=== PATIENT | female | born 1950 | race Caucasian/White ===

== ENCOUNTER 2018-03-21 20:05 | Inpatient (IN) | payer MEDICARE, OTHER ==
[~2018-03-21] VITALS: Ht 154.9 cm; Wt 101.2 kg
[2018-03-21 20:07] VITALS: BP 178/103
--- NOTE | 2018-03-21 20:29 | NUR ---
PT WAS UNABLE TO GIVE THE NAME OF HER ALLERGIES OR A LIST OF HER MEDICATIONS. SHE DID GIVE THIS NURSE A CARD FROM [facility] STATING SHE USES JUDITH VELÁZQUEZ HER PRIMARY PHYSICIAN. CALLED THE HOSPITAL AT THIS TIME THE OFFICES ARE CLOSED. SPOKE WITH GONZÁLEZ GARCIA IN THE ED AND SHE WAS ABLE TO GIVE ME PATIENTS ALLERGIES OF WHEN SHE HAD A BILATERAL BLEPHAROPLASTY (EYELIDS RAISED) IN 2016. SHE WILL CALL US BACK IF SHE IS ABLE TO RETRIEVE A MED LIST OR A NEXT OF KIN.
[2018-03-21 20:31] LABS: ABSOLUTE LYMPHOCYTES 1.1 thou/uL (0.8-5.3); ABSOLUTE MONOCYTES 0.6 thou/uL (0.0-1.2); ABSOLUTE NEUTROPHILS 7.9 thou/uL (1.6-8.1); BASOPHILS 0.4 %; EOSINOPHILS 0.4 %; HEMATOCRIT 37.5 % (37.0-47.0); HEMOGLOBIN 12.6 gm/dL (12.0-15.0); MCH 30.9 pg (26.0-34.0); MCHC 33.6 g/dL (28.0-37.0); MCV 91.9 fL (80.0-100.0); MONOCYTES 6.1 %; MPV 7.2 fl. (7.2-11.1); NUCLEATED RBCS 0 /100WBC; PLATELET COUNT* 268 thou/uL (150-400); POLYS 82.1 %; RBC 4.08 mil/uL (4.20-5.00); RDW-CV 14.3 % (10.5-14.5); WBC 9.6 thou/uL (4.0-11.0)
[2018-03-21 20:54] LABS: ANION GAP 2 mmol/L (7-16); BUN 12 mg/dL (7-18); CALCIUM 8.8 mg/dL (8.5-10.1); CHLORIDE 95 mmol/L (98-107); CO2 38 mmol/L (21-32); CREATININE 0.7 mg/dL (0.6-1.3); GLUCOSE 123 mg/dL (70-99); POTASSIUM 3.5 mmol/L (3.5-5.1); SODIUM 135 mmol/L (136-145)
[2018-03-21 21:01] LABS: ALBUMIN 2.9 g/dL (3.4-5.0); ALKALINE PHOSPHATASE 84 U/L (46-116); SGOT 14 U/L (15-37); SGPT 19 U/L (30-65); TOTAL BILIRUBIN 0.4 mg/dL (<0.1-1.0); TOTAL PROTEIN 7.3 g/dL (6.4-8.2); TROPONIN-I LEVEL <0.06 ng/mL (<0.06)
--- NOTE | 2018-03-21 21:15 | NUR ---
DAUGHTER IS KERMIT AT [phone]
[2018-03-21 21:46] LABS: URINE BLOOD NEGATIVE (Negative); URINE CLARITY CLEAR; URINE COLOR YELLOW; URINE GLUCOSE-RANDOM NEGATIVE (Negative); URINE KETONES 1+ (Negative); URINE LEUKOCYTES-REFLEX NEGATIVE (Negative); URINE NITRITE-REFLEX NEGATIVE (Negative); URINE PROTEIN 1+ (Negative); URINE SPECIFIC GRAVITY 1.015 (1.005-1.030)
[2018-03-21 21:47] LABS: ICTOTEST (BILI CONFIRMATORY) Negative (Negative); URINE BILIRUBIN 1+ (Negative)
[2018-03-21 21:52] LABS: BE 12.5 mmol/L (-2 to +3); PO2 91.1 mmHg (75.0-100.0); pH 7.317 (7.340-7.450)
[2018-03-21 21:56] LABS: HCO3 42.6 mmol/L (22.0-26.0); PCO2 85.2 mmHg (35.0-45.0)
[2018-03-21 22:50] VITALS: BP 106/55
[2018-03-21 23:50] VITALS: BP 135/98
[2018-03-22] VITALS (15 sets, daily range): BP systolic 104–149; BP diastolic 57–92
[2018-03-22 01:35] LABS: BE 8.5 mmol/L (-2 to +3); HCO3 38.3 mmol/L (22.0-26.0)
[2018-03-22 01:44] LABS: PCO2 83.4 mmHg (35.0-45.0); PO2 56.8 mmHg (75.0-100.0)
--- NOTE | 2018-03-22 02:55 | NUR ---
PT ADMITTED TO ICU BED 6 AT 0010, SEE ASSESSMENTS. PT STATED THAT SHE WAS VISITING FRIENDS IN [place] AND WAS TRAVELING BACK HOME TO [place]. SHE WEARS CONTINUOUS OXYGEN FOR COPD AND HER HOME O2 TANK HAD RUN EMPTY, SHE DOES NOT KNOW THE DURATION OF TIME SHE WAS WITHOUT HER O2. SHE STATED SHE BELIEVES SHE GOT LOST, WAS SOA AND CALLED 911. PT WAS PLACED ON BIPAP IN ER. 0130 CRITICAL ABG RESULTS WERE CALLED TO DR GRANT, PULMONOLOGY CONSULTED PER HIS ORDER. SPOKE WITH DR HAMLIN, ORDER RECEIVED TO MAINTAIN BIPAP AT CURRENT SETTINGS OF 16/6, RR 14, FIO2 50%. ASSISTED PT TO BSC, O2 SAT DROPPED RAPIDLY TO HIGH 70'S AND SUBSEQUENTLY HAJI CATHETER PLACED. VSS. PTS PURSE REMAINS AT BEDSIDE, PT DECLINED TO HAVE IT OR ANY OF ITS CONTENTS LOCKED IN SECURITY AT THIS TIME. PT ORIENTED TO ROOM AND CALL LIGHT WHICH IS WITHIN REACH.
--- NOTE | 2018-03-22 03:47 | NUR ---
SPOKE TO [facility] DISPATCH TO DETERMINE LOCATION OF PTS VEHICLE. PER DISPATCH, PT WAS PICKED UP BY [facility] AT A [facility] STATION ON [address] NEAR [place]. VIA INTERNET SEARCH LOCATED A [place] AT [address] IN [place], [place], .
[2018-03-22 04:33] LABS: ABSOLUTE EOSINOPHILS 0.1 thou/uL (0.0-0.7); ABSOLUTE LYMPHOCYTES 1.1 thou/uL (0.8-5.3); ABSOLUTE MONOCYTES 0.7 thou/uL (0.0-1.2); ABSOLUTE NEUTROPHILS 6.2 thou/uL (1.6-8.1); BASOPHILS 0.4 %; EOSINOPHILS 0.8 %; HEMATOCRIT 34.4 % (37.0-47.0); HEMOGLOBIN 11.2 gm/dL (12.0-15.0); LYMPHOCYTES 13.1 %; MCH 30.4 pg (26.0-34.0); MCHC 32.6 g/dL (28.0-37.0); MCV 93.1 fL (80.0-100.0); MONOCYTES 8.3 %; MPV 7.4 fl. (7.2-11.1); NUCLEATED RBCS 0 /100WBC; PLATELET COUNT* 249 thou/uL (150-400); POLYS 77.4 %; RBC 3.69 mil/uL (4.20-5.00)
[2018-03-22 04:43] LABS: ANION GAP < 0 mmol/L (7-16); BUN 11 mg/dL (7-18); CALCIUM 8.4 mg/dL (8.5-10.1); CHLORIDE 99 mmol/L (98-107); CO2 38 mmol/L (21-32); CREATININE 0.7 mg/dL (0.6-1.3); GLUCOSE 127 mg/dL (70-99); POTASSIUM 3.6 mmol/L (3.5-5.1); SODIUM 135 mmol/L (136-145)
[2018-03-22 08:51] LABS: BE 8.3 mmol/L (-2 to +3); HCO3 38.6 mmol/L (22.0-26.0); PO2 88.5 mmHg (75.0-100.0)
[2018-03-22 08:52] LABS: PCO2 89.8 mmHg (35.0-45.0); pH 7.251 (7.340-7.450)
--- NOTE | 2018-03-22 08:56 | NUR ---
RECEIVED REPORT FROM JOSE MARSH. ASSESSMENT CHARTED. AFEBRILE. PT IS ALERT BUT SEEMS CONFUSED. VITAL SIGNS STABLE. ABG'S DRAWN WHILE PT ON 6L NC. MEDS GIVEN. WILL CONTINUE TO MONITOR.
[2018-03-22 12:18] LABS: BE 6.7 mmol/L (-2 to +3); HCO3 34.9 mmol/L (22.0-26.0); PO2 69.1 mmHg (75.0-100.0); pH 7.318 (7.340-7.450)
[2018-03-22 12:19] LABS: PCO2 69.6 mmHg (35.0-45.0)
--- NOTE | 2018-03-22 15:15 | EKG ---
[place] [address] ELECTROCARDIOGRAM REPORT Name: SAUMYAYairJUDE R Room: [address] ADM IN .R.#: [id number] Admission: 03/21/18 Attend Phys: Bishnu Bajwa, Discharge: Date of : 52 Report #: [id number] THIS REPORT FOR: //name// [facility] ED Test Date: 2018-03-21 Test Time: 20:14:42 Pat Name: JUDE UNGER Department: Room: [address] Gender: F Black Top Paver Operator: BETTY : 1950 Requested By: Jeannie Márquez Order Number: [id number] Shanna MD: Jesús Hilton Measurements Intervals Brilliant Rate: 108 P: 54 MD: 170 QRS: 17 QRSD: 85 T: 93 QT: 316 QTc: 424 Interpretive Statements Sinus tachycardia Atrial premature complex Borderline repolarization abnormality No previous ECG available for comparison Electronically Signed On 03-22-2018 15:15:21 CDT by Jesús Hilton [email or web address] <ELECTRONICALLY SIGNED> By: Jesús Hilton MD, [facility] 03/22/18 1515 13 13 Jesús Hilton MD, FACC /EPI
[2018-03-23] VITALS (12 sets, daily range): BP systolic 107–142; BP diastolic 53–89
[2018-03-23 03:47] LABS: BE 5.7 mmol/L (-2 to +3); HCO3 34.5 mmol/L (22.0-26.0); PO2 78.1 mmHg (75.0-100.0)
[2018-03-23 03:48] LABS: PCO2 72.4 mmHg (35.0-45.0); pH 7.296 (7.340-7.450)
--- NOTE | 2018-03-23 06:43 | NUR ---
CURRENTLY REMAINS ON BIPAP. CONTINUAL EDUCATION PROVIDED ABOUT NECESSITY OF BIPAP AT THIS TIME, VERBALIZED UNDERSTANDING. PT REFUSED BIPAP FROM APPROXIMATELY [phone]. AM ABGS DONE AT 0300 ON 3L O2 PER NC, CRITICAL RESULTS WERE CALLED TO DR HAMLIN, NO NEW ORDERS. PT EDUCATED AT THAT TIME ABOUT ELEVATED CO2 AND SHE AGREED TO WEAR BIPAP FOR REMAINDER OF THE NIGHT BASED ON HER TOLERANCE. PT TURNS SELF IN BED FROM SIDE TO SIDE, ADEQUATELY RELIEVING PRESSURE. CALL LIGHT WITHIN REACH.
--- NOTE | 2018-03-23 08:08 | CON ---
[address] [address] CONSULTATION Name: JUDE UNGER Room: [address] ADM IN M.R.#: [id number] Admission: 03/21/18 Attend Phys: Bishnu Bajwa, Discharge: Date of : 52 Report #: [id number] THIS REPORT FOR: //name// CC: LUIS F physician/PCP Bishnu Bajwa REFERRING PHYSICIAN: Bishnu Bajwa MD CHIEF COMPLAINT: Respiratory failure, altered mental status. HISTORY OF PRESENT ILLNESS: The patient is a 68-year-old female who gives a history [place] around 7:00 or so and was headed to her home town in [place]. Unfortunately, she uses oxygen therapy and states that she ran out of oxygen. She became confused and directed herself to [facility]. I cannot get a real good idea as to actually how she arrived here. Reviewing the ER records, she did present to the Emergency Room at around 8:00 p.m. or so. The patient had numerous complaints in the Emergency Room complaining of headaches, leg swelling, dizziness, lightheadedness, neck pain and shortness of breath. The patient is confused in the sense that she is unable to tell me exactly what city and hospital she is in. She is oriented to person and time. Today, she is experiencing some nausea. She has not had any vomiting. The patient gives a vague history stating that she is a smoker, unable to provide an accurate description of her smoking history. I do get an idea that she is less than a half pack of cigarettes per day now, but had been as high as 1-1/2 to 2 packs per day. Unclear as to when she actually started cutting back on her cigarette consumption. She has denied any cough or phlegm production. She has not had any fever or chills. She lives by herself in [place]. This morning, she is not actually complaining of any specific pain. She has undergone evaluation in Emergency Room with a chest x-ray, CTA of the chest and a CT of the head. PAST MEDICAL HISTORY: Significant for COPD, hernia repair, abdominal hernia repair and history of "blood clots" unsure as to where these were if they were DVT or pulmonary emboli. FAMILY HISTORY: Not pertinent. She is unable to provide that information. SOCIAL HISTORY: She is a smoker. She lives by herself in [place]. She states [place] [address] CONSULTATION Name: JUDE UNGER Room: [address] IN [facility]#: [id number] Admission: 03/21/18 Attend Phys: Bishnu Bajwa, Discharge: Date of : 52 Report #: [id number] ALLERGIES: SHE IS ALLERGIC TO DOXYCYCLINE, IBUPROFEN, LEVOTHYROXINE, NAPROSYN, PENICILLIN, AND SULFA DRUGS. REVIEW OF SYSTEMS: System review is negative other than what is outlined above. CURRENT MEDICATIONS: Levaquin, aztreonam, lorazepam, DuoNeb aerosol treatments. PHYSICAL EXAMINATION: VITAL SIGNS: Blood pressure 104/68, respiratory rate 17 nonlabored, pulse rate 84, regular, temperature 98.2 degrees. Today's weight 219 pounds. GENERAL APPEARANCE: She is awake. She is responsive. She is drowsy and does fall asleep easily. HEAD: Atraumatic. EYES: Pupils are round, equal, reactive. Extraocular muscles are intact. Sclerae and conjunctivae are clear. NECK: There is no adenopathy or JVD. EARS: Reveal the auricular structures to be normal. NOSE: Nasal passages are patent without polyps. ORAL CAVITY: Moist. No lesions. Marked crowding of her oropharynx. Uvula not visualized. CHEST: Reveals markedly diminished breath sounds, poor inspiratory effort. CARDIOVASCULAR: Reveals a regular rhythm with a rate of about 82 and it is sinus. ABDOMEN: Obese without organomegaly or tenderness. EXTREMITIES: Negative for edema. No evidence of clubbing or cyanosis. SKIN: Warm and dry without rash. LYMPHATICS: Negative. Pulses are equal bilaterally. NEUROLOGIC: She is awake, alert. She is responsive but falls asleep easily. She is oriented to person as well as time. She is not sure about the place, although this would make sense and she is not familiar with the area. She is able to provide a good cgfube-ed-jejyuk exam. She does not have any tremors with outreached hands. Deep tendon reflexes are adequate bilaterally. No lateralizing signs, strength equal bilaterally. MEDICAL IMAGING STUDIES: CT of the brain was negative. No abnormalities noted. CT of the chest revealed no evidence of pulmonary emboli or dissection. There is a mild left lower lobe infiltrate. LABORATORY DATA: On admission in the Emergency Room, arterial blood gas revealed a pH 7.32, pCO2 of 85, pO2 of 91, bicarbonate of 42 while on 6 liters. At 1:30 a.m. today, her pH 7.28, pCO2 of 83, pO2 of 57, bicarbonate of 38 while on BiPAP 14/6. She is scheduled for another arterial blood gas. She is on a cannula at this time. BiPAP was discontinued because of her nausea. Hemoglobin and hematocrit of 11 and 34 with a white count of 8000. Troponin on [address] [address] CONSULTATION Name: JUDE UNGER Room: [address] IN M.R.#: [id number] Admission: 03/21/18 Attend Phys: Bishnu Bajwa, Discharge: Date of : 52 Report #: [id number] admission less than 0.06. Today, her electrolytes revealed sodium 135, potassium 3.6, chloride 99, CO2 of 38, a BUN of 11, creatinine 0.7. ASSESSMENT: 1. Acute hypoxemic, hypercapnic respiratory failure. 2. Altered mental status secondary to hypercapnia, most likely. 3. Obesity. 4. Presumed sleep apnea. 5. Pulmonary infiltrates. RECOMMENDATION: Continue arterial blood gases. If the patient has nausea, we will provide antiemetics. We will attempt BiPAP in the event that her blood gases are worsening. In the event that she deteriorates, continues to remain nausea, she may require intubation and ventilator support because of her abnormal blood gases in the event that they worsen. In the meantime, we will initiate aspiration precautions, add some steroids, check thyroid function studies. 35-40 minutes were spent in evaluating and complying the critical care consult. <ELECTRONICALLY SIGNED> By: Shazia Parham MD 03/23/18 0808 [id number] Roberts MD /nt
[2018-03-23 13:05] LABS: BE 6.1 mmol/L (-2 to +3); HCO3 31.8 mmol/L (22.0-26.0); PO2 92.6 mmHg (75.0-100.0); pH 7.413 (7.340-7.450)
--- NOTE | 2018-03-23 16:00 | NUR ---
SPOKE WITH PATIENT THIS MORNING. SHE WAS DRIVING FROM [place], BACK HOME TO [place]. SHE NORMALLY WEARS 02 AT 4L CONTINOUSLY, SHE RAN OUT OF HER PORTABLE OXYGEN, CONTINUED TO DRIVE BUT 'FELT LIKE I WAS DRUNK.' PT DROVE HERSELF TO THE E.D., HER MINIVAN IS PARKED IN THE PARKING LOT. PT NORMALLY IS ACTIVE AND INDEP. HER DTR KERMIT DROVE FROM [place] AND IS HERE NOW. PT'S HOME OXYGEN IS FROM [facility]. CALLED ([phone]) AND SPOKE WITH [facility], PT WILL NEED OXYGEN TO GET FROM [place] BACK HOME TO [place] WHEN SHE IS DISCHARGED. RECEIVED CALL BACK FROM LEON THIS AFTERNOON, THEY HAVE SHIPPED BY UPS A PORTABLE CONCENTRATOR (RUNS ON BATTERIES OR HAS A CAR C T TECH) TO THIS HOSPITAL SO PATIENT CAN USE THAT ON THE WAY HOME.
[2018-03-24] VITALS (8 sets, daily range): BP systolic 126–179; BP diastolic 70–103
[2018-03-24 05:05] LABS: ALBUMIN 2.3 g/dL (3.4-5.0); CALCIUM 8.6 mg/dL (8.5-10.1); CREATININE 0.8 mg/dL (0.6-1.3); POTASSIUM 4.2 mmol/L (3.5-5.1); TOTAL BILIRUBIN 0.1 mg/dL (<0.1-1.0); TOTAL PROTEIN 6.4 g/dL (6.4-8.2)
[2018-03-24 05:13] LABS: HEMATOCRIT 34.6 % (37.0-47.0); HEMOGLOBIN 11.5 gm/dL (12.0-15.0); MCH 30.4 pg (26.0-34.0); MCHC 33.2 g/dL (28.0-37.0); MCV 91.5 fL (80.0-100.0); MPV 7.9 fl. (7.2-11.1); NUCLEATED RBCS 0 /100WBC; PLATELET COUNT* 257 thou/uL (150-400); RBC 3.78 mil/uL (4.20-5.00); RDW-CV 14.3 % (10.5-14.5)
[2018-03-24 06:07] LABS: ABSOLUTE LYMPHOCYTES 0.7 thou/uL (0.8-5.3); ABSOLUTE MONOCYTES 0.1 thou/uL (0.0-1.2); ABSOLUTE NEUTROPHILS 13.2 thou/uL (1.6-8.1); PLATELET ESTIMATE ADEQUATE
[2018-03-24 06:08] LABS: ANISOCYTOSIS 1+; POIKILOCYTOSIS 1+
--- NOTE | 2018-03-24 07:46 | NUR ---
PROGRESSING TOWARD GOALS. TOLERATING BIPAP BETTER, HFNC DURING MEALS. O2 SATS HAVE REMAINED >90%. TOLERATING PO INTAKE WELL. PT TURNS SELF INDEPENDENTLY IN BED. CALL LIGHT WITHIN REACH.
--- NOTE | 2018-03-24 09:00 | NUR ---
PATIENT IS AXOX4, ASSESSMENT CHARTED. NO PAIN, NAUSEA, OR SHORTNESS OF AIR. GOALS FOR TODAY ARE TO INCREASE ACTIVITY, PAIN CONTROL, IMOROVE BREATHING AND DECREASE O2 NEEDS. BED IN LOWEST POSITION, CALL LIGHT IN REACH, INSPECTOR EYEGLASS IN PLACE. WILL CONTINUE TO MONITOR.
[2018-03-24 09:44] LABS: BE 6.6 mmol/L (-2 to +3); HCO3 31.8 mmol/L (22.0-26.0); PCO2 48.1 mmHg (35.0-45.0); pH 7.438 (7.340-7.450)
[2018-03-24 09:45] LABS: PO2 57.7 mmHg (75.0-100.0)
--- NOTE | 2018-03-24 10:40 | NUR ---
Nutrition: Pt admitted with respiratory failure. Assessed for high BMI, 41.5. Eating CHO controlled diet well. Pt wants to go home. Off bipap, on 3L O2. Wt: 219#. BG is high 229, albumin 3. RX: no insulin or BG lowering RX noted, on solumedrol. GOAL: better BG control. Hopefully, more physical movement will help. Pt wants to get up and move. Mild nutrition risk. Follow up per protocol.
--- NOTE | 2018-03-24 11:23 | NUR ---
PATIENT IS M/S TELE. GOING TO ROOM 309 BY WHEELCHAIR. ALL BELONGINGS SENT WITH PATIENT. FAMILY PRESENT AT TRANSFER. REPORT GIVEN TO TARAN GARCIA. ALL QUESTIONS ANSWERED.
--- NOTE | 2018-03-24 11:31 | NUR ---
INTERDISICPLINARY ROUNDS: PT UP IN CHAIR, ON 3L O2. TO HAVE PORTABLE CONCENTRATOR DELIVERED SOON. PT TO TRSF TO MS/TELE TODAY
--- NOTE | 2018-03-24 15:03 | NUR ---
PATIENT TO ROOM 309 VIA WHEELCHAIR ABOUT 1130 TODAY. A/O, DENIES PAIN, VSS, ON 3LO2NC, ROSALINDA IVF VIA 20G TO LEFT FA, ROSALINDA IV ABT WITHOUT S/S OF ADR, ROSALINDA LUNCH WITHOUT DIFFICULTY. FAMILY REPORTS PATIENT HAS HAD NO BM IN FIVE DAYS, PATIENT DOESN'T REMEMBER LAST BM. BED ALARMS ON, SIDERAILS UP X 3, CALL LIGHT IN REACH, SCD'S DECLINED. PRIOR ASSESSMENT REVIEWED, AGREE WITH FINDINGS. CONT POC.
[2018-03-24] MEDS ORDERED: LOPRESSOR50 PO (16:50)
[2018-03-24] MEDS ORDERED: LISINOPRIL20 MG PO (16:51)
--- NOTE | 2018-03-24 17:46 | NUR ---
HYPERTENSIVE THIS AFTERNOON, 20 MG LISINOPRIL GIVEN PER ORDERS.
[2018-03-25 04:00] VITALS: BP 146/86
--- NOTE | 2018-03-25 07:30 | NUR ---
PT REQUESTING SOMETHING TO HELP HER SLEEP, STATES SHE DOESNT LIKE "THAT MACHINE" (BIPAP) AND IT MAKES HER FEEL CLAUSTROPHIBIC. NOTIFIED AND ORDERS RECEIVED. PT SLEPT WELL WITH BIPAP ON AFTER TAKING SLEEP AIDE. LORAZEPAM GIVEN AFTER MIDNIGHT AND PT ABLE TO TOLERATE BIPAP WELL. UP WITH SBA TO BR TO VOID. PT CAN BE IMPULSIVE, TAKING OFF O2 AND PULLING ON IV SO BED ALARM ON OVERNIGHT FOR SAFETY. RFA IVF INFUSING PER PUMP, ABX GIVEN ORDERED, SOLUMEDROL. TELE SR. DENIES PAIN. ABLE TO USE CALL LITE AND MAKE NEEDS KNOWN.
[2018-03-25 08:00] VITALS: BP 172/103
[2018-03-25] MEDS ORDERED: METHOTREXATE 22.5 MG PO (08:25)
[2018-03-25] MEDS ORDERED: ALBUTEROL2.5 MG/31 INH (08:26)
[2018-03-25] MEDS ORDERED: CYMBALTA30 MG PO (08:26)
[2018-03-25] MEDS ORDERED: FOLIC ACID1 MG PO (08:27)
[2018-03-25] MEDS ORDERED: OMEPRAZOLE 20 M20 M1 PO (08:29)
[2018-03-25] MEDS ORDERED: SYNTHROID175 MCG PO (08:31)
[2018-03-25] MEDS ORDERED: VENTOLIN HFA 1818 GM INH (08:31)
--- NOTE | 2018-03-25 10:54 | NUR ---
PORTABLE CONCENTRATOR SHIPPED FROM OXYGEN SUPPLIER HAS ARRIVED. TOOK CONCENTRATOR TO PT'S ROOM, SHE SAID SHE HAS HAD ONE IN THE PAST AND UNDERSTANDS HOW IT WORKS BUT WILL READ THRU THE DIRECTIONS THAT CAME WITH IT TO MAKE SURE. PT'S DTR HAS RETURNED HOME BUT PT BELIEVES HER DTR IS RETURNING TO DRIVE HOME WITH HER WHEN SHE IS DISCHARGED.
--- NOTE | 2018-03-25 16:09 | NUR ---
PATIENT A&OX4, FORGETFUL AT TIMES. VERY ANXIOUS. 3L O2 VIA NC, ON BIPAP. IV IN RIGHT FOREARM, INFILTRATED. 2ND IV RIGHT FOREARM, INFILTRATED. SPOKE WITH PHYSICIAN, OKAY WITH PO MEDICATIONS. UP AD LAURA, STAND BY STEADY GIAT. NO C/O PAIN/N/V. HOME OXYGEN TANK PROVIDED SO SHE CAN MAKE IT BACK HOME. NO OTHER CONCERNS AT THIS TIME. APPROPRAITE AND COOPORATIVE WITH CARE.
[2018-03-25 16:59] VITALS: BP 150/96
--- NOTE | 2018-03-25 17:13 | NUR ---
ASSUMED CARE OF PATIENT AT 1600. PATIENT SITTING UP ON SIDE OF BED AWAITING DINNER. NO COMPLAINTS AT THIS TIME. WILL CONTINUE TO MONITOR.
[2018-03-25 20:00] VITALS: BP 140/89
[2018-03-25 23:40] VITALS: BP 167/96
[2018-03-26 04:30] VITALS: BP 180/102
[2018-03-26 04:36] LABS: ALBUMIN 2.5 g/dL (3.4-5.0); ALKALINE PHOSPHATASE 60 U/L (46-116); ANION GAP < 0 mmol/L (7-16); BUN 23 mg/dL (7-18); CALCIUM 8.6 mg/dL (8.5-10.1); CHLORIDE 91 mmol/L (98-107); CO2 40 mmol/L (21-32); CREATININE 0.8 mg/dL (0.6-1.3); GLUCOSE 193 mg/dL (70-99); MAGNESIUM 2.1 mg/dL (1.8-2.4); PHOSPHORUS* 3.8 mg/dL (2.5-4.9); POTASSIUM 4.6 mmol/L (3.5-5.1); SGOT 36 U/L (15-37); SGPT 35 U/L (30-65); SODIUM 130 mmol/L (136-145); TOTAL BILIRUBIN 0.2 mg/dL (<0.1-1.0); TOTAL PROTEIN 5.6 g/dL (6.4-8.2)
[2018-03-26 04:42] LABS: ABSOLUTE LYMPHOCYTES 0.8 thou/uL (0.8-5.3); ABSOLUTE MONOCYTES 0.5 thou/uL (0.0-1.2); ABSOLUTE NEUTROPHILS 11.5 thou/uL (1.6-8.1); BASOPHILS 0.1 %; HEMOGLOBIN 11.3 gm/dL (12.0-15.0); LYMPHOCYTES 6.6 %; MCH 30.3 pg (26.0-34.0); MCHC 33.2 g/dL (28.0-37.0); MCV 91.3 fL (80.0-100.0); MONOCYTES 3.7 %; MPV 7.7 fl. (7.2-11.1); NUCLEATED RBCS 0 /100WBC; PLATELET COUNT* 236 thou/uL (150-400); POLYS 89.6 %; RBC 3.72 mil/uL (4.20-5.00); RDW-CV 14.6 % (10.5-14.5); WBC 12.8 thou/uL (4.0-11.0)
--- NOTE | 2018-03-26 06:11 | NUR ---
PATIENT SLEPT MOST OF THE NIGHT. PATIENT HAD NO COMPLAINTS OF PAIN. PATIENT REMAINS ON OXYGEN AT 3L PER NASAL CANNULA. PATIENT IS POSSIBLY BEING DISCHARGED TODAY OR TOMORROW. WILL CONTINUE TO MONITOR.
[2018-03-26 08:15] VITALS: BP 164/95
[2018-03-26 11:21] VITALS: BP 141/81
--- NOTE | 2018-03-26 15:34 | NUR ---
IRISH followed up with pt. Pt said she plans to have her dtr drive here so that she won't be driving home alone. Pt anticipating to be able to dc Friday or Friday. No needs or concerns expressed at this time.
[2018-03-26 15:57] VITALS: BP 148/78
[2018-03-26 16:34] LABS: BE 10.5 mmol/L (-2 to +3); HCO3 37.4 mmol/L (22.0-26.0); PO2 90.6 mmHg (75.0-100.0); pH 7.413 (7.340-7.450)
[2018-03-26 16:40] LABS: PCO2 59.9 mmHg (35.0-45.0)
--- NOTE | 2018-03-26 18:47 | NUR ---
PATIENT RESTING IN BED. PATIENT HAS BEEN UP FOR MEALS. PATIENT HAS GOOD APPETITE. PATIENT IS ON 3L/NC. PATIENT HAS DENIED ANY TROUBLE BREATHING. PATIENT IS TO BE ON BIPAP AT NIGHT. PATIENT DENIES ANY NEEDS AT THIS TIME. CALL LIGHT WITHIN REACH. WILL CONTINUE TO MONITOR.
[2018-03-26 20:00] VITALS: BP 128/75
[2018-03-27] VITALS (7 sets, daily range): BP systolic 131–165; BP diastolic 76–93
[2018-03-27 05:10] LABS: CALCIUM 8.6 mg/dL (8.5-10.1); CREATININE 0.6 mg/dL (0.6-1.3); POTASSIUM 4.3 mmol/L (3.5-5.1)
--- NOTE | 2018-03-27 05:50 | NUR ---
PATIENT SLEPT MOST OF THE NIGHT. PATIENT HAD NO COMPLAINTS OF PAIN. PATIENT REMAINS ON OXYGEN AT 3L PER NASAL CANNULA. PATIENT IS POSSIBLY GOING HOME FRIDAY. WILL CONTINUE TO MONITOR.
[2018-03-27] MEDS ORDERED: PREDNISONE 10 M10 MG PO (11:04)
--- NOTE | 2018-03-27 20:15 | NUR ---
PATIENT RESTING IN BED. PATIENT DENIES ANY PAIN. PATIENT DENIES ANY TROUBLE BREATHING. PATIENT HAS O2 ON AT 2L/NC. PATIENT IS UP AD LAURA IN ROOM. PATIENT IS TENTATIVELY DISCHARGING TOMORROW, PATIENT'S DAUGHTER IS DRIVING FROM [place] TO TAKE HER HOME. PATIENT DENIES ANY NEEDS AT THIS TIME. CALL LIGHT WITHIN REACH. WILL CONTINUE TO MONITOR.
[2018-03-28] VITALS (7 sets, daily range): BP systolic 116–143; BP diastolic 70–86
--- NOTE | 2018-03-28 06:21 | NUR ---
ASSESSMENT COMPLETE. PT SLEPT THROUGH THE NIGHT. PT IS ON 2L PER NC WITH [place] SATS, BIPAP AT HS TOLERATED FOR AROUND 6 HOURS. PT DENIES PAIN AND N/V. PT IS ON MONITOR. PT HAS NO IV. PT IS UP AD LAURA AND TURNS SELF IN BED. SEE ASSESSMENT AND VITALS FOR OTHER DETAILS. CALL LIGHT WITHIN REACH, WILL CONTINUE PLAN OF CARE
[2018-03-28] MEDS ORDERED: ROBITUSSIN100 MG/53 PO (17:12)
--- NOTE | 2018-03-28 18:43 | NUR ---
PATIENT REMAINED ALERT AND ORIENTED X'S 4. VITAL SIGNS AND SPO2 STABLE. PATIENT WAS SUPPOSED TO BE DISCHARGED YESTERDAY BUT LIVES IN [place] AND HAD NO RIDE. TODAY HOWEVER, HE SODIUM LEVEL HAS DROP SIGNIFICANTLY DROPPED FROM 130 TO 121. DOCTOR PLACED HER ON 1500 ML FLUID RESTRICTION DIET. PATIENT WAS UPSET BUT NURSE EXPLAINED THE REASONS BEHIND DOCTOR KEEPING HER OVERNIGHT. PATIENT STATED SHE IS GREATFUL FOR HAVING SUCH GOOD CARE AND WAS SATISTFIED. NO IV ACCESS. VOIDED WITHOUT ISSUE. RECIEVED BREATHING TREATMENTS. COMPLETED HOURLY ROUNDING. CALL LIGHT WITHIN REACH. WILL CONTINUE TO MONITOR.
[2018-03-29 03:56] LABS: HEMOGLOBIN 12.8 gm/dL (12.0-15.0); MCH 29.7 pg (26.0-34.0); MCHC 33.7 g/dL (28.0-37.0); MCV 88.2 fL (80.0-100.0); MPV 7.6 fl. (7.2-11.1); RBC 4.31 mil/uL (4.20-5.00); RDW-CV 14.4 % (10.5-14.5); WBC 12.9 thou/uL (4.0-11.0)
[2018-03-29 04:16] LABS: ALBUMIN 2.6 g/dL (3.4-5.0); CALCIUM 8.3 mg/dL (8.5-10.1); CREATININE 0.8 mg/dL (0.6-1.3); MAGNESIUM 1.9 mg/dL (1.8-2.4); POTASSIUM 3.9 mmol/L (3.5-5.1); TOTAL BILIRUBIN 0.2 mg/dL (<0.1-1.0); TOTAL PROTEIN 5.3 g/dL (6.4-8.2)
[2018-03-29 04:40] VITALS: BP 115/67
--- NOTE | 2018-03-29 05:23 | NUR ---
PATIENT HAS REMAINED ALERT AND ORIENTED X 4 THROUGHOUT THE SHIFT AND RESTING QUIETLY ON HOURLY ROUNDS. UP INDEPENDENTLY IN THE ROOM. O2 AT 2L/MIN BY NASAL CANNULA. BIPAP HS BY RT. VITAL SIGNS STABLE. FLUID RESTRICTION MAINAINED. HOPING FOR DISCHARGE TODAY. CONTINUE TO MONITOR.
[2018-03-29 08:00] VITALS: BP 121/64
[2018-03-29 11:32] VITALS: BP 131/70
--- NOTE | 2018-03-29 13:50 | NUR ---
PATIENT WISHES TO LEAVE AMA. FAMILY WITH PATIENT. FAMILY STATES SINCE PATIENT IS REFUSING TO STAY IN HOSPITAL THEY WILL TAKE HER TO THE ER OR DOCTOR WHEN THEY GET HOME TO BE EVALUATED. DR. GRANT AND NURSING DISCUSSED RISKS OF LEAVING AMA WITH PATIENT AND FAMILY. PATIENT VERBALIZED UNDERSTANDING. DISCHARGED WITH OXYGEN, AND CAR ADAPTER TO CHARGE OXYGEN CONCENTRATOR. DAUGHTER AND SON IN LAW WITH PATIENT.
== END 2018-03-29 13:54 | disposition left against medical advice (07) | DRG 177 ==
LOC: M.ERS 20:05 → M.ICU 22:52 → M.TBA-ER 22:52 → M.ICU 23:45 → M.3W 03-24 12:27
PROVIDERS: Emergency Medicine; Internal Medicine Critical Care Medicine; Internal Medicine Pulmonary Disease; ADMIT Family Medicine
PROC: 5A09457 Assistance with Respiratory Ventilation, 24-96 Consecutive Hours, Continuous Positive Airway Pressure (ICD-10-PCS; principal; 2018-03-21)
DX: J69.0 Pneumonitis due to inhalation of food and vomit (principal); J96.21 Acute and chronic respiratory failure with hypoxia; J96.22 Acute and chronic respiratory failure with hypercapnia; G93.40 Encephalopathy, unspecified; J44.0 Chronic obstructive pulmonary disease with (acute) lower respiratory infection; J44.1 Chronic obstructive pulmonary disease with (acute) exacerbation; E87.2 Acidosis; E87.1 Hypo-osmolality and hyponatremia; Z68.41 Body mass index [BMI] 40.0-44.9, adult; G47.33 Obstructive sleep apnea (adult) (pediatric); F17.210 Nicotine dependence, cigarettes, uncomplicated; R79.82 Elevated C-reactive protein (CRP); E66.01 Morbid (severe) obesity due to excess calories; Z91.14 Patient's other noncompliance with medication regimen; Z88.6 Allergy status to analgesic agent; Z88.1 Allergy status to other antibiotic agents; Z88.0 Allergy status to penicillin; Z88.2 Allergy status to sulfonamides; Z88.8 Allergy status to other drugs, medicaments and biological substances; Z99.81 Dependence on supplemental oxygen; Z79.2 Long term (current) use of antibiotics; Z79.51 Long term (current) use of inhaled steroids; Z79.899 Other long term (current) drug therapy